=== PATIENT | female | born 1960 | race Caucasian/White ===

== ENCOUNTER 2020-08-07 10:16 | Outpatient (CLI) | payer MEDICARE, MEDICAID | END 2020-08-07 23:59 | disposition home or self-care (01) | LOC: CFH 10:16 | PROVIDERS: ATTEND Nurse Practitioner Family | DX: M19.042 Primary osteoarthritis, left hand (principal); M25.742 Osteophyte, left hand ==

== ENCOUNTER 2020-09-07 14:33 | Emergency (ER) | payer MEDICARE, MEDICAID ==
[~2020-09-07] VITALS: Ht 152.4 cm; Wt 71.5 kg
[2020-09-07] MEDS ORDERED: SODIUM CHLORIDE FLUSH 10ML SYR IVF ONE (15:00)
[2020-09-07] MEDS ORDERED: ONDANSETRON 2MG/ML, 2ML IVPush ONE (15:00)
[2020-09-07] MEDS ORDERED: FAMOTIDINE 20 MG/2 ML IVPush ONE (15:00)
[2020-09-07] MEDS ORDERED: SODIUM CHLORIDE 0.9% 1,000ML IVBOLUS ONE (15:00)
[2020-09-07 15:10] LABS: BASOPHILS % (AUTO) 1 % (0-1); EOSINOPHILS % (AUTO) 1 % (1-7); LYMPHOCYTES % (AUTO) 26 % (22-44); MEAN CORPUSCULAR HEMOGLOBIN 29.9 pg (27.0-34.8); MEAN CORPUSCULAR HGB CONC 33.7 g/dL (32.4-35.8); MEAN PLATELET VOLUME 10.2 fL (7.4-10.4); MONOCYTES % (AUTO) 8 % (2-9); NEUTROPHILS % (AUTO) 64 % (42-75); PLATELET COUNT 229 x10^3/uL (130-400); RED BLOOD COUNT 4.95 x10^6/uL (3.82-5.3); RED CELL DISTRIBUTION WIDTH 13.7 % (9.6-15.2)
[2020-09-07] MEDS ORDERED: FAMOTIDINE 20 MG/2 ML ONE (15:21)
[2020-09-07] MEDS ORDERED: ONDANSETRON 2MG/ML, 2ML ONE (15:21)
[2020-09-07 15:23] LABS: CHLORIDE 109 mmol/L (98-107)
[2020-09-07 15:24] LABS: ACETONE, SERUM Negative (Negative)
[2020-09-07 15:28] LABS: MD NO
[2020-09-07 15:29] LABS: ALANINE AMINOTRANSFERASE 21 U/L (12-78); ALBUMIN 2.7 g/dL (3.4-5.0); ALKALINE PHOSPHATASE 138 U/L (45-117); ANION GAP 4 mmol/L (5-15); BILIRUBIN,TOTAL 0.3 mg/dL (0.2-1.0); CALCIUM 8.8 mg/dL (8.5-10.1); CREATININE 1.45 mg/dL (0.55-1.02); TOTAL PROTEIN 6.3 g/dL (6.4-8.2); TROPONIN I < 0.015 ng/mL (0.000-0.045)
--- NOTE | 2020-09-07 15:30 | NUR ---
IV STARTED, LABS DRAWN WITH START. PT AMBULATORY TO BR, URINE COLLECTED/WALKED TO LAB. PT PLACED ON ALL ROOM MONITORING, SINUS TACH LOW 100S ON MONITOR. PT MEDICATED FOR NAUSEA AND MINOR PERIUMBILICAL PAIN. NS BOLUS INFUSING. CALL LIGHT WITHIN REACH, WARM BLANKETS PROVIDED.
[2020-09-07 16:03] LABS: MICROSCOPIC INDICATED
[2020-09-07 16:38] VITALS: BP 177/61
--- NOTE | 2020-09-07 16:38 | NUR ---
ALL RESULTS BACK, PT FOR RECHECK
== END 2020-09-07 18:04 | disposition home or self-care (01) ==
LOC: ED 17:45
DX: R11.2 Nausea with vomiting, unspecified (principal); E10.65 Type 1 diabetes mellitus with hyperglycemia; E10.22 Type 1 diabetes mellitus with diabetic chronic kidney disease; I12.9 Hypertensive chronic kidney disease with stage 1 through stage 4 chronic kidney disease, or unspecified chronic kidney disease; N18.9 Chronic kidney disease, unspecified; I25.2 Old myocardial infarction
CPT/HCPCS: 36415; 80053; 81001; 82010; 82800; 83690; 84484; 85025; 93005; 96374; 96375; 99284; J2405; J7030

== ENCOUNTER 2020-11-02 12:35 | Emergency (ER) | payer MEDICARE, MEDICAID ==
[~2020-11-02] VITALS: Ht 152.4 cm; Wt 73.0 kg
--- NOTE | 2020-11-02 12:58 | NUR ---
PT AMBULATORY TO ROOM FROM [facility], CHANGED INTO GOWN. MONITORS IN PLACE. CALL LIGHT WITHIN REACH PT C/O SORE THROAT FOR 2 DAYS. STATES SHE LVIES WITH HER HER DAUGHTER WHO HAD STREP THROAT AND NOW HAS THE SAME SYMPTOMS.
--- NOTE | 2020-11-02 13:13 | NUR ---
ERP AT BS FOR EVAL
[2020-11-02] MEDS ORDERED: ONDANSETRON ODT 4 MG ONE (13:28)
[2020-11-02] MEDS ORDERED: ONDANSETRON ODT 4 MG PO ONE (13:30)
[2020-11-02] MEDS ORDERED: SODIUM CHLORIDE 0.9% 1,000ML IVBOLUS ONE (13:30)
[2020-11-02] MEDS ORDERED: SODIUM CHLORIDE FLUSH 10ML SYR IVF ONE (13:30)
--- NOTE | 2020-11-02 13:30 | NUR ---
PIV PLACED, PT MEDICATED PER EMAR. IVF INFUSING. CALL LIGHT WITHIN REACH, BED IN LOWEST POSITION, BED RAILS UP X2. NO NEEDS AT THIS TIME
[2020-11-02 13:38] LABS: BASOPHILS % (AUTO) 1 % (0-1); EOSINOPHILS % (AUTO) 0 % (1-7); LYMPHOCYTES % (AUTO) 35 % (22-44); MEAN CORPUSCULAR HGB CONC 33.4 g/dL (32.4-35.8); MEAN PLATELET VOLUME 10.5 fL (7.4-10.4); MONOCYTES % (AUTO) 3 % (2-9); NEUTROPHILS % (AUTO) 61 % (42-75); PLATELET COUNT 224 x10^3/uL (130-400); RED BLOOD COUNT 5.12 x10^6/uL (3.82-5.3); RED CELL DISTRIBUTION WIDTH 13.2 % (9.6-15.2)
[2020-11-02 13:45] LABS: ALBUMIN 2.9 g/dL (3.4-5.0); ANION GAP 6 mmol/L (5-15); CALCIUM 9.4 mg/dL (8.5-10.1); CHLORIDE 109 mmol/L (98-107); CREATININE 1.46 mg/dL (0.55-1.02)
[2020-11-02] MEDS ORDERED: ONDANSETRON 2MG/ML, 2ML ONE (13:45)
[2020-11-02 13:49] VITALS: BP 169/102
--- NOTE | 2020-11-02 13:49 | NUR ---
PT MEDICATED PER MAR
[2020-11-02] MEDS ORDERED: ONDANSETRON 2MG/ML, 2ML IVPush ONE (14:00)
== END 2020-11-02 14:36 | disposition home or self-care (01) ==
LOC: ED 14:16
DX: J03.00 Acute streptococcal tonsillitis, unspecified (principal); E11.22 Type 2 diabetes mellitus with diabetic chronic kidney disease; I12.9 Hypertensive chronic kidney disease with stage 1 through stage 4 chronic kidney disease, or unspecified chronic kidney disease; N18.9 Chronic kidney disease, unspecified; I25.2 Old myocardial infarction; F17.200 Nicotine dependence, unspecified, uncomplicated
CPT/HCPCS: 36415; 80048; 82040; 85025; 86308; 87880; 96361; 96374; 99283; J2405; J7030; Q0162